=== PATIENT | male | born 1975 | race Caucasian/White ===

== ENCOUNTER 2017-12-25 11:25 | Emergency (ER) | payer SELFPAY ==
[~2017-12-25] VITALS: Ht 182.9 cm; Wt 70.3 kg
--- NOTE | 2017-12-25 12:12 | ED PSYCHIATRIC COMPLAINT ---
History of Present Illness General Chief Complaint: ETOH/Drug Related Complaint Stated Complaint: ETOH DETOX Source: patient, old records Exam Limitations: no limitations Vital Signs & Intake/Output Vital Signs & Intake/Output Vital Signs Date Time Temp Pulse Resp B/P B/P Pulse O2 O2 Flow FiO2 Mean Ox Delivery Rate 12/25 1750 98.8 96 20 124/80 07 1710 98.8 96 20 124/80 98 Room Air 12/25 1600 98.9 84 18 124/78 07 1537 98.9 84 20 124/78 98 Room Air 12/25 1439 99.1 94 18 132/80 99 Room Air 12/25 1131 98.7 93 18 125/87 95 Room Air Room Air Allergies Coded Allergies: No Known Allergies (12/25/17) Reconcile Medications Ondansetron HCl (Zofran) 4 MG TABLET 1 TAB PO TID NAUSEA (Reported) Triage Note: PT TO ED PER PT WENT TO URGENT CARE TOLD I'M DEHYDRATED AND GIVEN ZOFRAN ODT FOR THE NAUSEA, SENT IN FOR ETOH DETOX. PER PT DAILY 8 BEERS AND 3-4 NIPPERS, SOMETIMES MORE FOR YEARS. Triage Nurses Notes Reviewed? yes Onset: Last week Duration: day(s):, better, waxing and waning Timing: recent history Severity: moderate Associated Symptoms: nausea and vomiting HPI: 10 days prior to admission patient complains of nausea vomiting anorexia with thoughts of stopping alcohol abuse. His last drink was 2-1/2 days ago. He denies alcohol withdrawal seizure and DTs. He denies fever chills diarrhea abdominal pain chest pain cough shortness breath headache dysuria rash bleeding. Past History Travel History Traveled to [place] past 21 day No Medical History Any Pertinent Medical History? 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 No Review of Systems Review of Systems Constitutional: Reports: no symptoms. EENTM: Reports: no symptoms. Respiratory: Reports: no symptoms. Cardiovascular: Reports: no symptoms. GI: Reports: see HPI, nausea, vomiting. Genitourinary: Reports: no symptoms. Musculoskeletal: Reports: no symptoms. Skin: Reports: no symptoms. Neurological/Psychological: Reports: no symptoms. Hematologic/Endocrine: Reports: no symptoms. Immunologic/Allergic: Reports: no symptoms. All Other Systems: Reviewed and Negative Physical Exam Physical Exam General Appearance: well developed/nourished, alert, awake, anxious, mild distress Head: atraumatic, normal appearance Eyes: Bilateral: normal appearance, PERRL, EOMI. Ears, Nose, Throat: normal pharynx, normal ENT inspection, hearing grossly normal Neck: normal inspection, supple, full range of motion, no midline tenderness Respiratory: normal breath sounds, chest non-tender, no respiratory distress, quiet respiration, lungs clear Cardiovascular: regular rate/rhythm, normal peripheral pulses, norml femoral pulses equa Gastrointestinal: normal bowel sounds, soft, non-tender, no organomegaly Extremities: normal range of motion, no ligament instability Neurological/Psychiatric: no motor/sensory deficits, awake, alert, calm, calciner feeder II- XII nml as tested, oriented x 3 Appearance/Memory/Insight: disheveled, impaired insight Behavoir/Eye Contact/Speech: cooperative, normal speech Thoughts/Hallucinations: no apparent hallucination Skin: intact, normal color, warm/dry SAD PERSONS Done? patient not suicidal Progress Differential Diagnosis: drug intoxication, drug overdose, drug withdrawal, electrolyte abnormality Plan of Care: Orders Procedure Date/time Status Regular Diet 12/25 D Active Add-on Test (ER Only) 12/25 1336 Active ETHANOL 12/25 1159 Complete CIWA 12/25 1133 Active URINE DRUG SCREEN FOR ER ONLY 12/25 1133 Complete URINALYSIS 12/25 1133 Complete MAGNESIUM 12/25 1133 Complete LIPASE 12/25 1133 Complete COMPREHENSIVE METABOLIC PANEL 12/25 1133 Complete CBC WITHOUT DIFFERENTIAL 12/25 1133 Complete Laboratory Tests 12/25/17 1248: Urine Opiates Screen < 100, Methadone Screen < 40, Barbiturate Screen < 60, Ur Phencyclidine Scrn < 6.00, Amphetamines Screen < 100, U Benzodiazepines Scrn < 85, Urine Cocaine Screen < 50, Urine Cannabis Screen 14.80, Urine Color YEL, Urine Clarity CLEAR, Urine pH 6.5, Ur Specific Hungry Horse <= 1.005, Urine Protein NEG, Urine Ketones NEG, Urine Nitrite NEG, Urine Bilirubin NEG@ICTO, Urine Urobilinogen 4.0 H, Ur Leukocyte Esterase NEG, Ur Microscopic EXAM NOT REQUIRED , Urine Hemoglobin NEG, Urine Glucose 100 H 12/25/17 1159: Anion Gap 14, Estimated GFR > 60, BUN/Creatinine Ratio 15.6, Glucose 140 H, Calcium 9.1, Magnesium 1.5 L, Total Bilirubin 6.1 H, AST 360 H, ALT 162 H, Alkaline Phosphatase 141 H, Total Protein 6.7, Albumin 3.6, Globulin 3.1, Albumin/Globulin Ratio 1.2, Lipase 229, CBC w Diff NO MAN DIFF REQ, RBC 4.04 L, MCV 97.7 H, MCH 34.2 H, MCHC 35.0, RDW 13.6, MPV 9.4, Gran % 75.2, Lymphocytes % 17.9 L, Monocytes % 5.9, Eosinophils % 0.8, Basophils % 0.2, Absolute Granulocytes 4.2, Absolute Lymphocytes 1.0 L, Absolute Monocytes 0.3, Absolute Eosinophils 0, Absolute Basophils 0, Serum Alcohol < 10.0 Comments: No significant CIWA scoring. Departure Departure Time of Disposition: 1825 Disposition: HOME OR SELF CARE Condition: Stable Clinical Impression Primary Impression: Alcohol dependence Secondary Impressions: Nausea & vomiting Referrals: Patient Has No Primary Care Dr (PCP/Family) Departure Forms: DETOX FACILITIES LIST General Discharge Information Prescriptions: Current Visit Scripts Ondansetron (Zofran Odt) 1 TAB SL TID PRN nausea #10 TAB Chlordiazepoxide HCl 0 PO SEE ADMIN CRITERIA PRN alcohol withdrawal #32 CAP 1-2 cap TID x 2D, 1-2 cap BID x 2D, 1-2 cap QD x2D Critical Care Note Critical Care Note Critical Care Time: 30-74 min (40)
[2017-12-25 12:19] LABS: ABSOLUTE BASOPHIL COUNT 0 /CUMM (0.0-0.2); ABSOLUTE EOSINOPHIL COUNT 0 /CUMM (0.0-0.7); ABSOLUTE GRANULOCYTE CT 4.2 /CUMM (1.4-6.5); ABSOLUTE MONOCYTE COUNT 0.3 /CUMM (0.10-0.60); BASOPHIL % 0.2 % (0.0-2.0); EOSINOPHIL % 0.8 % (0-5); HEMATOCRIT 39.5 % (42-52); MEAN CORPUSCULAR HGB 34.2 PG (27.0-31.0); MEAN CORPUSCULAR VOLUME 97.7 FL (80.0-94.0); MEAN PLATELET VOLUME 9.4 FL (7.4-10.4); RBC DISTRIBUTION WIDTH 13.6 % (11.5-14.5); RED BLOOD CELL CT 4.04 /CUMM (4.70-6.10); WHITE BLOOD CELL COUNT 5.6 /CUMM (4.8-10.8)
[2017-12-25 12:36] LABS: GRANULOCYTE % 75.2 % (42.2-75.2); PLATELET COUNT 150 /CUMM (130-400)
[2017-12-25] MEDS ORDERED: ZOFRAN4 M2 PO (13:34)
[2017-12-25] MEDS ORDERED: ZOFRAN ODT4 M1 SL (18:27)
[2017-12-25] MEDS ORDERED: CHLORDIAZEPOXID25 M3 PO (18:27)
[2017-12-25 18:48] VITALS: BP 118/72
== END 2017-12-25 18:49 ==
LOC: ERH 11:25
PROVIDERS: Physician Assistant Medical
DX: F10.20 Alcohol dependence, uncomplicated (principal); R11.2 Nausea with vomiting, unspecified
CPT/HCPCS: 80307; 81003; G0480; J3490